=== PATIENT | female | born 1955 ===

== ENCOUNTER 2021-02-05 09:21 | Inpatient (IN) | payer OTHER ==
[~2021-02-05] VITALS: Ht 157.5 cm; Wt 83.9 kg
[2021-02-05] MEDS ORDERED: PLAVIX75 MG PO (10:51)
[2021-02-05] MEDS ORDERED: CARV PO (10:52)
[2021-02-05] MEDS ORDERED: ZOCOR20 MG PO (10:52)
[2021-02-05] MEDS ORDERED: PROTONIX PO (10:53)
[2021-02-05] MEDS ORDERED: FORTAMET500 MG PO (10:53)
[2021-02-05] MEDS ORDERED: ATACAND HCT 321 EACH PO (10:53)
[2021-02-05] MEDS ORDERED: FOLIC A PO (10:54)
[2021-02-05] MEDS ORDERED: ZYLOPRIM100 M1 PO (10:54)
[2021-02-05] MEDS ORDERED: SYNTHROID50 MCG PO (10:55)
[2021-02-05] MEDS ORDERED: METHOTREX PO (10:55)
[2021-02-09] MEDS ORDERED: DICLOFENAC SODI50 MG (13:06)
[2021-02-09] MEDS ORDERED: CARVEDILOL25 M1 (13:06)
[2021-02-09] MEDS ORDERED: FENOFIBRATE145 MG (13:06)
[2021-02-09] MEDS ORDERED: GLIMEPIRIDE1 M1 (13:06)
[2021-02-09] MEDS ORDERED: PANTOPRAZOLE SO40 MG (13:06)
[2021-02-09] MEDS ORDERED: METHOTREXATE2.5 MG PO (13:08)
[2021-02-09] MEDS ORDERED: FOLIC ACID1 MG PO (13:09)
[2021-02-11] MEDS ORDERED: XARELTO10 MG PO (07:50)
[2021-02-11] MEDS ORDERED: OXYC1TAB9 PO (07:50)
[2021-02-11] MEDS ORDERED: INTEGRA PLUS C1 EACH PO (07:50)
[2021-02-11] MEDS ORDERED: BACTRIM DS TAB1 EACH PO (07:50)
== END 2021-02-11 14:09 | disposition short-term general hospital, planned readmission (82) | DRG 470 ==
LOC: O/R 02-09 07:08 → SURG 02-09 07:08 → SURH 02-09 08:30 → SURG 02-09 15:20
PROVIDERS: ADMIT Orthopaedic Surgery Sports Medicine; ATTEND Orthopaedic Surgery Sports Medicine
PROC: 3E0F7SF Introduction of Other Gas into Respiratory Tract, Via Natural or Artificial Opening (ICD-10-PCS; 2021-02-09)
PROC: 0SRD0JA Replacement of Left Knee Joint with Synthetic Substitute, Uncemented, Open Approach (ICD-10-PCS; principal; 2021-02-09 08:30)
DX: M17.12 Unilateral primary osteoarthritis, left knee (principal); I10 Essential (primary) hypertension; E11.9 Type 2 diabetes mellitus without complications; E03.8 Other specified hypothyroidism; E78.00 Pure hypercholesterolemia, unspecified; Z20.822 Contact with and (suspected) exposure to COVID-19